=== PATIENT | female | born 1965 | race Caucasian/White ===

== ENCOUNTER 2024-03-06 11:35 | Outpatient (CLI) | payer OTHER | END 2024-03-06 11:36 | disposition home or self-care (01) | LOC: CSHCP 11:35 | PROVIDERS: ATTEND Registered Nurse | DX: R06.02 Shortness of breath (principal) | CPT/HCPCS: 94060; 94664; 94726; 94729; 94760 ==

== ENCOUNTER 2024-03-14 09:53 | Outpatient (CLI) | payer OTHER | END 2024-03-14 09:54 | disposition home or self-care (01) | LOC: CSHCT 09:53 | PROVIDERS: ATTEND Registered Nurse | DX: J96.01 Acute respiratory failure with hypoxia (principal); J44.1 Chronic obstructive pulmonary disease with (acute) exacerbation; R91.1 Solitary pulmonary nodule; R19.8 Other specified symptoms and signs involving the digestive system and abdomen; J43.9 Emphysema, unspecified; J92.9 Pleural plaque without asbestos | CPT/HCPCS: 71250 ==